=== PATIENT | male | born 1990 ===

== ENCOUNTER 2017-02-12 20:06 | Emergency (ER) | payer SELFPAY ==
[2017-02-12 20:47] VITALS: BP 135/84; PULSE 69; RESP 16; TEMP 98.2; O2SAT 100
--- NOTE | 2017-02-12 21:22 | C.PDOC ---
History Of Present Illness 26 y/o male presents to ED with complaints of headache, feverish and cough with yellow sputum since Friday. Patient also reports intermittent sob and today felt chest tightness that prompted his visit to ED for evaluation. Patient states he is drinking and eating normally. Patient denies feeling uncomfortable , n/v/d, urinary symptoms or any other complaints at this time. Time Seen by Provider: 02/12/17 21:10 Chief Complaint (Nursing): Chest Pain History Per: Patient History/Exam Limitations: no limitations Onset/Duration Of Symptoms: Days Current Symptoms Are (Timing): Still Present Location Of Pain: Headache Associated Symptoms: Cough, Sputum. denies: Nasal Congestion, Vomiting, Diarrhea Past Medical History Reviewed: Historical Data, Nursing Documentation, Vital Signs Vital Signs: Last Vital Signs Temp 98.2 F 02/12/17 20:40 Pulse 69 02/12/17 20:40 Resp 16 02/12/17 20:40 BP 135/84 02/12/17 20:40 Pulse Ox 100 02/12/17 21:23 Family History: States: No Known Family Hx - Social History Hx Alcohol Use: No Hx Substance Use: No - Immunization History Hx Tetanus Toxoid Vaccination: No Hx Influenza Vaccination: No Hx Pneumococcal Vaccination: No Review Of Systems Except As Marked, All Systems Reviewed And Found Negative. Constitutional: Positive for: Fever. Negative for: Chills Cardiovascular: Positive for: Chest Pain Respiratory: Positive for: Shortness of Breath Gastrointestinal: Negative for: Nausea, Vomiting, Diarrhea Neurological: Positive for: Headache Physical Exam - Physical Exam Appears: No Acute Distress Skin: Normal Color, Warm Head: Atraumatic, Normacephalic Oral Mucosa: Moist Chest: Symmetrical Cardiovascular: Rhythm Regular, No Murmur Respiratory: Normal Breath Sounds, No Rales, No Rhonchi, No Wheezing Gastrointestinal/Abdominal: Soft, No Tenderness, No Guarding, No Rebound Extremity: Normal ROM, Capillary Refill (<2 seconds) Neurological/Psych: Oriented x3 ED Course And Treatment O2 Sat by Pulse Oximetry: 100 (RA) Pulse Ox Interpretation: Normal Disposition Counseled Patient/Family Regarding: Studies Performed - Disposition Referrals: [facility] [Outside] Disposition: HOME/ ROUTINE Disposition Time: 21:21 Condition: STABLE Prescriptions: Amoxicillin/Clavulanate [Augmentin 875 MG-125 MG] 1 tab PO BID #14 tab Instructions: Acute Bronchitis (ED) Print Language: AMHARIC - Clinical Impression Clinical Impression: Bronchitis - Scribe Statement The provider has reviewed the documentation as recorded by the Hermaniberos Maurer All medical record entries made by the Hermaniberos were at my direction and personally dictated by me. I have reviewed the chart and agree that the record accurately reflects my personal performance of the history, physical exam, medical decision making, and the department course for this patient. I have also personally directed, reviewed, and agree with the discharge instructions and disposition.
--- NOTE | 2017-02-14 06:36 | CARD ---
APPROVED REPORT EKG Measurement Heart [id number] UT [id number] <Conclusion> Sinus bradycardia Otherwise normal ECG
== END 2017-02-12 21:34 | disposition home or self-care (01) ==
LOC: C.ER 20:06
DX: J40 Bronchitis, not specified as acute or chronic (principal)